=== PATIENT | female | born 1970 | race African-American/Black ===

== ENCOUNTER 2017-02-06 05:16 | Inpatient (IN) | payer OTHER ==
[2017-02-03 09:05] VITALS: BMI 30.7
[2017-02-06] MEDS ORDERED: MIDAZOLAM HCL 2 MG/2 ML SINGLE DOSE VIAL ONE (07:41)
[2017-02-06] MEDS ORDERED: ROCURONIUM BROMIDE 50 MG/5 ML VIAL ONE ×2 (07:41→10:04)
[2017-02-06] MEDS ORDERED: PROPOFOL 20 ML ONE (07:41)
[2017-02-06] MEDS ORDERED: CEFAZOLIN 2 GM in DEXTROSE 5%-WATER - 100 ML IVPB ONE (08:38)
--- NOTE | 2017-02-06 08:39 | HP ---
History & Physical Update - History History: No Change - Physical Physical: No Change - Assessment Assessment: No Change - Plan Plan: No Change
[2017-02-06] MEDS ORDERED: ceFAZolin SODIUM 1 GM VIAL IVPB ONE (09:05)
[2017-02-06] MEDS ORDERED: ceFAZolin SODIUM 1 GM VIAL ONE (09:05)
[2017-02-06] MEDS ORDERED: ePHEDrine SULFATE 50 MG/1 ML AMPULE ONE (09:15)
[2017-02-06] MEDS ORDERED: DEXAMETHASONE SOD PHOSPHATE 4 MG/1 ML VIAL ONE ×2 (09:24→10:58)
[2017-02-06] MEDS ORDERED: BUPIVACAINE HCL/PF 0.5% (5MG/ML) 10 ML VIAL IJ ONE ×3 (09:28→10:55)
[2017-02-06] MEDS ORDERED: HYDROmorphone HCL/PF 1 MG/ML VIAL (FOR PYXIS CHARGING ONLY) ONE ×2 (09:59→10:25)
[2017-02-06] MEDS ORDERED: IBUPROFEN 800 MG/8 ML IJ IVPB PRN (10:05)
[2017-02-06] MEDS ORDERED: NEOSTIGMINE METHYLSULFATE 0.5 MG/ML - 10 ML MDV ONE (11:19)
[2017-02-06] MEDS ORDERED: GLYCOPYRROLATE 0.2 MG/1 ML VIAL ONE (11:19)
[2017-02-06] MEDS ORDERED: LACTATED RINGERS SOLUTION 1,000 ML IV SCH (11:45)
[2017-02-06] MEDS ORDERED: HYDROmorphone *PCA* 10MG/50ML DISP.SYRIN PCA SCH ×2 (11:45→13:36)
--- NOTE | 2017-02-06 12:27 | OP ---
Operative Note - Note: Operative Date: 02/06/17 Pre-Operative Diagnosis: Leiomyomeatous uterus Operation: Laparoscopic Robotic hysterectomy. converted exploratory laparotomy. total abdominal hysterectomy. bilateral salpingectomy Findings: leiomyomatous uterus Post-Operative Diagnosis: Same as Pre-op Surgeon: Dania Aguila Field Technical Support Consultant: Romelia Guevara Anesthesia: General Estimated Blood Loss (mls): 300 Operative Report Dictated: Yes
[2017-02-06] MEDS: CEFAZOLIN 2 GM/D5W 50 ML IVPB SCH (18:01)
[2017-02-06 20:50] LABS: BASOPHIL 0.2 % (0-2.0); MCH 26.4 pg (25.7-33.7); MCHC 32.5 g/dl (32.0-36.0); MEAN CELL VOLUME 81.2 fl (80-96); MEAN PLT VOLUME 9.7 fl (7.5-11.1); PLATELET COUNT 255 K/MM3 (134-434); RDW 17.2 % (11.6-15.6); WHITE BLOOD COUNT 14.2 K/mm3 (4.0-10.0)
[2017-02-06 21:12] LABS: CALCIUM 8.8 mg/dL (8.5-10.1); CREATININE 0.7 mg/dL (0.55-1.02)
[2017-02-06] MEDS: METOPROLOL SUCCINATE 100 MG TAB.SR.24H (FP) PO SCH (22:28)
[2017-02-06] MEDS: LOSARTAN POTASSIUM 50 MG TABLET (FP) PO SCH (22:28)
[2017-02-06] MEDS: ATORVASTATIN CA 40 MG TABLET (FP) PO SCH (22:28)
[2017-02-06] MEDS: HYDROCHLOROTHIAZIDE 50 MG TABLET PO SCH (22:37)
[2017-02-07] MEDS: CEFAZOLIN 2 GM/D5W 50 ML IVPB SCH (00:49)
[2017-02-07 08:05] LABS: BASOPHIL 0.4 % (0-2.0); MCH 26.6 pg (25.7-33.7); MCHC 32.6 g/dl (32.0-36.0); MEAN CELL VOLUME 81.6 fl (80-96); MEAN PLT VOLUME 9.4 fl (7.5-11.1); NEUTROPHILS 83.2 % (42.8-82.8); PLATELET COUNT 228 K/MM3 (134-434); RDW 16.9 % (11.6-15.6); WHITE BLOOD COUNT 15.3 K/mm3 (4.0-10.0)
--- NOTE | 2017-02-07 08:18 | PN ---
Progress Note, Physician History of Present Illness: Pt seen/evaluated, overall doing well. Having some incisional pain. Denies CP/ SOB/F/C/PALACIO. [place] catheter in draining blue tinged urine. Tolerating clear diet, no n/v. No VB. No other complaints. - Current Medication List Current Medications: Active Medications Atorvastatin Calcium (Lipitor -) 40 mg PO [facility] Last Admin: 02/06/17 22:28 Dose: 40 mg Enoxaparin Sodium (Lovenox -) 40 mg SQ DAILY [facility] Hydrochlorothiazide (Hctz -) 50 mg PO [facility] Last Admin: 02/06/17 22:37 Dose: 50 mg Hydromorphone HCl (Dilaudid Membership Correspondent -) 10 mg WOOD TILE INSTALLATION HELPER WOOD TILE INSTALLATION HELPER [facility] PRN Reason: Protocol Stop: 02/13/17 11:39 Lactated Ringer's (Lactated Ringers Solution) 1,000 mls @ 75 mls/hr IV ASDIR [facility] Ibuprofen (Caldolor Injection -) 800 mg IVPB Q8H PRN PRN Reason: FEVER Losartan Potassium (Cozaar -) 50 mg PO [facility] Last Admin: 02/06/17 22:28 Dose: 50 mg Metoprolol Succinate (Toprol Xl -) 100 mg PO [facility] Last Admin: 02/06/17 22:28 Dose: 100 mg - Objective Vital Signs: Vital Signs Temperature 98.5 F 02/07/17 05:04 Pulse Rate 87 02/07/17 05:04 Respiratory Rate 20 02/07/17 05:04 Blood Pressure 134/70 02/07/17 05:04 O2 Sat by Pulse Oximetry (%) 100 02/06/17 13:55 Constitutional: Yes: Well Nourished, No Distress, Calm Eyes: Yes: Conjunctiva Clear, EOM Intact HENT: Yes: Atraumatic, Normocephalic Neck: Yes: Supple, Trachea Midline Cardiovascular: Yes: Regular Rate and Rhythm Respiratory: Yes: Regular, CTA Bilaterally Gastrointestinal: Yes: Normal Bowel Sounds, Soft Genitourinary: Yes: [place] Present Wound/Incision: Yes: Clean/Dry, Dressing Dry and Intact Neurological: Yes: Alert, Oriented Psychiatric: Yes: Alert, Oriented Labs: CBC, BMP 02/07/17 07:25 02/06/17 20:00 Problem List - Problems (1) S/P total abdominal hysterectomy Code(s): Z90.710 - ACQUIRED ABSENCE OF BOTH CERVIX AND UTERUS Assessment/Plan 46 y/o POD#1 s/p robotic diagnostic laparoscopy converted to total abdominal hysterectomy and bilateral salpingectomy for fibroids - AFVSS - hgb 10.4 post op, pt stable - clear diet, advance to regular - discontinue spain cathter later today - encourage abmulation - routine care
--- NOTE | 2017-02-07 09:09 | PN ---
Progress Note, Physician Chief Complaint: Pt. comfortable, pain controlled without ROLFER. No GA complaints. - Current Medication List Current Medications: Active Medications Atorvastatin Calcium (Lipitor -) 40 mg PO [facility] Last Admin: 02/06/17 22:28 Dose: 40 mg Enoxaparin Sodium (Lovenox -) 40 mg SQ DAILY [facility] Hydrochlorothiazide (Hctz -) 50 mg PO [facility] Last Admin: 02/06/17 22:37 Dose: 50 mg Hydromorphone HCl (Dilaudid Bridge Painter -) 10 mg ROLFER ROLFER [facility] PRN Reason: Protocol Stop: 02/13/17 11:39 Lactated Ringer's (Lactated Ringers Solution) 1,000 mls @ 75 mls/hr IV ASDIR [facility] Ibuprofen (Caldolor Injection -) 800 mg IVPB Q8H PRN PRN Reason: FEVER Losartan Potassium (Cozaar -) 50 mg PO [facility] Last Admin: 02/06/17 22:28 Dose: 50 mg Metoprolol Succinate (Toprol Xl -) 100 mg PO [facility] Last Admin: 02/06/17 22:28 Dose: 100 mg - Objective Vital Signs: Vital Signs Temperature 98.7 F 02/07/17 08:56 Pulse Rate 73 02/07/17 08:56 Respiratory Rate 20 02/07/17 08:56 Blood Pressure 139/91 02/07/17 08:56 O2 Sat by Pulse Oximetry (%) 100 02/06/17 13:55 Constitutional: Yes: Well Nourished, No Distress, Calm Musculoskeletal: Yes: WNL Neurological: Yes: WNL, Alert, Oriented ...Motor Strength: WNL Labs: CBC, BMP 02/07/17 07:25 02/06/17 20:00 Assessment/Plan POD#1 s/p Robotic to open hysterectomy under GA. Doing well, not using ROLFER. D/C ROLFER.
[2017-02-07] MEDS: ENOXAPARIN NA (PORCINE) 40 MG/0.4 ML DISP.SYRIN SQ SCH (09:43)
[2017-02-07] MEDS ORDERED: HYDROmorphone HCL CARPU-JECT 2 MG/1 ML DISP.SYRIN IVPB PRN (10:05)
[2017-02-07] MEDS ORDERED: oxyCODONE HCL 5 MG TABLET PO PRN (10:06)
--- NOTE | 2017-02-07 12:26 | PATH ---
Surgical Pathology Report Patient Name: MILAGRO ESPINOZA [facility]. Rec. #: [id number] /Age/Gender: 1970 (Age: 46) / F Account: [id number] Location: [facility] OBS/PLANT BUYER Taken: 02/06/2017 Received: 02/06/2017 Reported: 02/07/2017 Physicians: Dania Aguila M.D. Specimen(s) Received A: UTERUS AND CERVIX B: LEFT FALLOPIAN TUBE C: RIGHT FALLOPIAN TUBE D: RIGHT PARATUBAL CYST Clinical History Endometrial polyps, leiomyomatous uterus Final Diagnosis A. UTERUS AND CERVIX, TOTAL ABDOMINAL HYSTERECTOMY: CERVIX: CHRONIC CERVICITIS AND SQUAMOUS METAPLASIA. ENDOMETRIUM: DISORDERED PROLIFERATIVE. MYOMETRIUM: ADENOMYOSIS, LEIOMYOMATA WITH FOCAL DEGENERATIVE CHANGES (LARGEST 6.0 CM); FOCAL DEPOSITS OF AMORPHOUS MATERIAL SUGGESTIVE OF PRIOR UTERINE ARTERY EMBOLIZATION. UTERINE SEROSA: WITHOUT SIGNIFICANT PATHOLOGIC CHANGES. B. FALLOPIAN TUBE, LEFT SALPINGECTOMY: BENIGN FALLOPIAN TUBE WITH FOCAL FIBRINOHEMORRHAGIC ADHESIONS. C. FALLOPIAN TUBE, RIGHT, SALPINGECTOMY: BENIGN FALLOPIAN TUBE WITH FOCAL FIBRINOHEMORRHAGIC ADHESIONS. D. RIGHT PARATUBAL CYST, CYSTECTOMY: BENIGN SEROUS CYST. Electronically Signed Fantasma Qiu M.D. Gross Description A. Received in formalin labeled "uterus and cervix" is a 405 g hysterectomy specimen including a uterus with an attached cervix and no attached adnexa. The specimen measures 12 cm from superior to inferior, 11 cm from left to right and 6.5 cm from anterior to posterior. The serosa is pink-wahl with abundant bulging subserosal nodules. The attached cervix measures 4.5 cm in length and 4.0 cm in diameter. The ectocervix is pink-wahl, smooth and glistening. The endocervix displays a 0.7 x 0.3 x 0.2 cm pink-wahl polyp on the posterior aspect. The endometrial cavity measures 5 cm in length and 2.4 cm from cornu to cornu. The endometrium is hyperemic and averages 0.2 cm in thickness. The myometrium displays abundant intramural nodules measuring up to 6 cm in greatest dimension. The cut surface of the subserosal and intramural nodules is wahl, firm to rubbery displays whorled architecture. No areas of hemorrhage or necrosis are identified. Esthetician/Skin Therapist sections are submitted in 12 cassettes as follows: 1-anterior cervix; 2-posterior cervix with polyp; 3-6-vkasyngj endomyometrium; 8-9-yyatavcmx endomyometrium; 0-4-rcuosrtdro nodule; 4-36-sbzziwevqz nodules. B. Received in formalin labeled "left fallopian tube" is a 1.3 cm in length fimbriated portion of fallopian tube. The outer surface is owens-purple. Sectioning reveals a pinpoint lumen. Esthetician/Skin Therapist sections are submitted in 2 cassettes as follows: 1-fimbria; 2-cross sections of fallopian tube. C. Received in formalin labeled "right fallopian tube" is a 1.8 cm in length fimbriated portion of fallopian tube. The outer surface is owens-purple. Sectioning reveals an pinpoint lumen. Esthetician/Skin Therapist sections are submitted in 2 cassettes as follows: 1-fimbria; 2-cross sections of fallopian tube. D. Received in formalin labeled "right paratubal cyst" a 1.8 x 1.5 x 1.3 cm wahl, intact cyst containing clear serous fluid. Esthetician/Skin Therapist sections are submitted in one cassette. 02/06/[address] [facility]02/06/2017
[2017-02-07] MEDS ORDERED: SIMETHICONE 80 MG TAB.CHEW (FP) PO PRN (12:31)
[2017-02-07] MEDS ORDERED: ONDANSETRON 4 MG/2 ML VIAL ONE (12:46)
[2017-02-07] MEDS: ONDANSETRON 4 MG/2 ML VIAL IVPUSH PRN ×2 (12:49→15:43)
[2017-02-07] MEDS ORDERED: ONDANSETRON 4 MG/2 ML VIAL IVPB PRN (15:32)
[2017-02-07] MEDS ORDERED: PCA PUMP KEY 1 EACH EACH ONE (18:04)
[2017-02-07] MEDS: LOSARTAN POTASSIUM 50 MG TABLET (FP) PO SCH (22:36)
[2017-02-07] MEDS: HYDROCHLOROTHIAZIDE 50 MG TABLET PO SCH (22:36)
[2017-02-07] MEDS: METOPROLOL SUCCINATE 100 MG TAB.SR.24H (FP) PO SCH (22:37)
[2017-02-07] MEDS: ATORVASTATIN CA 40 MG TABLET (FP) PO SCH (22:37)
[2017-02-08] MEDS ORDERED: ACETAMINOPHEN 325 MG TABLET (FP) PO PRN (09:45)
--- NOTE | 2017-02-08 09:45 | PN ---
[id number] Pt was not able to void - Current Medications Current Medications: Active Medications Atorvastatin Calcium (Lipitor -) 40 mg PO [facility] Last Admin: 02/07/17 22:37 Dose: Not Given Enoxaparin Sodium (Lovenox -) 40 mg SQ DAILY [facility] Last Admin: 02/07/17 09:43 Dose: 40 mg Hydrochlorothiazide (Hctz -) 50 mg PO [facility] Last Admin: 02/07/17 22:36 Dose: Not Given Lactated Ringer's (Lactated Ringers Solution) 1,000 mls @ 75 mls/hr IV ASDIR [facility] Ibuprofen (Caldolor Injection -) 800 mg IVPB Q8H PRN PRN Reason: FEVER Last Admin: 02/07/17 10:10 Dose: 800 mg Losartan Potassium (Cozaar -) 50 mg PO [facility] Last Admin: 02/07/17 22:36 Dose: Not Given Metoprolol Succinate (Toprol Xl -) 100 mg PO [facility] Last Admin: 02/07/17 22:37 Dose: Not Given Ondansetron HCl (Zofran Injection) 4 mg IVPB Q4H PRN PRN Reason: NAUSEA AND/OR VOMITING Simethicone (Mylicon -) 80 mg PO QID PRN PRN Reason: GAS Last Admin: 02/07/17 11:50 Dose: 80 mg - Objective Vital Signs: Vital Signs Temperature 98.5 F 02/08/17 08:13 Pulse Rate 77 02/08/17 08:13 Respiratory Rate 18 02/08/17 08:13 Blood Pressure 120/69 02/08/17 08:13 O2 Sat by Pulse Oximetry (%) 100 02/06/17 13:55 Constitutional: Yes: Well Nourished, No Distress Gastrointestinal: Yes: WNL, Soft, Abdomen, Obese Musculoskeletal: Yes: WNL Extremities: Yes: WNL Edema: No Integumentary: Yes: WNL Wound/Incision: Yes: Well Approximated, Steri Strips, Open to air Neurological: Yes: WNL, Alert, Oriented Labs Lab Results: CBC, BMP 02/07/17 07:25 02/06/17 20:00 Problem List - Problems (1) S/P total abdominal hysterectomy Code(s): Z90.710 - ACQUIRED ABSENCE OF BOTH CERVIX AND UTERUS Assessment/Plan POD1 stable Pt was unable to void yesterday spain was replaced will maintain spain [place] until check ua dc home with foly if UA has rbc
[2017-02-08] MEDS ORDERED: IBUPROFEN 600 MG TABLET (FP) PO PRN (09:46)
[2017-02-08 09:54] LABS: URINE APPEARANCE CLEAR; URINE BILIRUBIN NEGATIVE (NEGATIVE); URINE COLOR YELLOW; URINE GLUCOSE (UA) NEGATIVE (NEGATIVE); URINE KETONE NEGATIVE (NEGATIVE); URINE LEUK ESTERASE NEGATIVE (NEGATIVE); URINE NITRITE NEGATIVE (NEGATIVE); URINE PROTEIN NEGATIVE (NEGATIVE); URINE UROBILINOGEN NEGATIVE E.U./dl (0.2-1.0)
[2017-02-08 10:02] LABS: URINE BLOOD 3+ (NEGATIVE)
[2017-02-08 10:11] LABS: URINE MUCUS RARE; URINE RBC 11 /hpf (0-3); URINE WBC 3 /hpf (3-5)
[2017-02-08] MEDS: ENOXAPARIN NA (PORCINE) 40 MG/0.4 ML DISP.SYRIN SQ SCH (11:26)
--- NOTE | 2017-02-08 11:49 | CONSULT ---
Consultation: REQUESTING PROVIDER: Baltazar Najera CONSULT REQUEST: We have been asked to medically evaluate this patient for (Eval ). HISTORY OF PRESENT ILLNESS: 46 year old female with pmh of Hypertension and hyperlipidemia, day 2 s/p Total bilateral hysterectomy and salpingectomy for medical evaluation. Pt said she feels well and her only complaint is abdominal bloating and gas. Pt has no fever or chills, no nausea and vomiting. Pt is tolerating diet well. Patient is burping and passing gas rectally but has not have any bowel movement since the surgery but she usually have daily bowel movement. Patient had her spain catheter removed yesterday but was unable to urinate and the spain cath had to be reinserted. Pt has clear yellow urine and denies gross hematuria, no vaginal bleeding no foul smelling or abnormal vaginal discharge. PMH: HTN, HPLD PSH: Laparoscopic Robotic hysterectomy converted to open laparotomy, total abdominal hysterectomy b/l salpingectomy. 2 c-sections SH: no smoking, occasional alcohol, no recreational drug FH: Mother with HTN, Hyperlipidemia, father of liver cancer at 44 NKA REVIEW OF SYSTEMS: CONSTITUTIONAL: Absent: fever, chills, diaphoresis, generalized weakness, malaise, loss of appetite, weight change HEENT: Absent: rhinorrhea, nasal congestion, throat pain, throat swelling, difficulty swallowing, mouth swelling, ear pain, eye pain, visual changes CARDIOVASCULAR: Absent: chest pain, syncope, palpitations, irregular heart rate, lightheadedness , peripheral edema RESPIRATORY: Absent: cough, shortness of breath, dyspnea with exertion, orthopnea, wheezing, stridor, hemoptysis GASTROINTESTINAL:abdominal distension, constipation, bloating/gas Absent: abdominal pain, nausea, vomiting, diarrhea, melena, hematochezia GENITOURINARY: Absent: dysuria, frequency, urgency, hesitancy, hematuria, flank pain, genital pain MUSCULOSKELETAL: Absent: myalgia, arthralgia, joint swelling, back pain, neck pain SKIN: abdominal suprapubic horizontal surgical scar Absent: rash, itching, pallor HEMATOLOGIC/IMMUNOLOGIC: Absent: easy bleeding, easy bruising, lymphadenopathy, frequent infections ENDOCRINE: Absent: unexplained weight gain, unexplained weight loss, heat intolerance, cold intolerance NEUROLOGIC: Absent: headache, focal weakness or paresthesias, dizziness, unsteady gait, seizure, mental status changes, bladder or bowel incontinence PSYCHIATRIC: Absent: anxiety, depression, suicidal or homicidal ideation, hallucinations. PHYSICAL EXAMINATION Vital Signs - 24 hr 02/07/17 02/07/17 02/07/17 14:00 18:00 21:15 Temperature 98.3 F 97.8 F 97.9 F Pulse Rate 61 63 82 Respiratory 20 20 20 Rate Blood Pressure 131/88 124/71 141/74 02/08/17 02/08/17 02/08/17 01:35 06:00 08:13 Temperature 99.0 F 99.3 F 98.5 F Pulse Rate 81 73 77 Respiratory 20 20 18 Rate Blood Pressure 114/64 126/55 120/69 GENERAL: Awake, alert, and fully oriented, in no acute distress. HEAD: Normal with no signs of trauma. EYES: Pupils equal, round and reactive to light, extraocular movements intact, sclera anicteric, conjunctiva clear. No lid lag. EARS, NOSE, THROAT: Ears normal, nares patent, oropharynx clear without exudates. Moist mucous membranes. NECK: Normal range of motion, supple without lymphadenopathy, JVD, or masses. LUNGS: Breath sounds equal, clear to auscultation bilaterally. No wheezes, and no crackles. No accessory muscle use. HEART: Regular rate and rhythm, normal S1 and S2 without murmur, rub or gallop. ABDOMEN: Soft, tender low abdomen around surgical site, not distended, normoactive bowel sounds, no guarding, no rebound, no masses. No hepatomegaly or splenomegaly. horizontal suprapubic surgical scar, well approximated with steristrip, mild to moderate serous fluid, no foul smelling MUSCULOSKELETAL: Normal range of motion at all joints. No bony deformities or tenderness. No CVA tenderness. UPPER EXTREMITIES: 2+ pulses, warm, well-perfused. No cyanosis. No clubbing. Cap refill <2 seconds. No peripheral edema. LOWER EXTREMITIES: 2+ pulses, warm, well-perfused. No calf tenderness. No peripheral edema. NEUROLOGICAL: Cranial nerves II-XII intact. Normal speech. Normal gait. PSYCHIATRIC: Cooperative. Good eye contact. Appropriate mood and affect. SKIN: Warm, dry, normal turgor, no rashes or lesions noted. Surgical scar suprapubic region Laboratory Results - last 24 hr 02/08/17 09:00 Urine Color Yellow Urine Appearance Clear Urine pH 7.0 Ur Specific [place] 1.018 Urine Protein Negative Urine Glucose (UA) Negative Urine Ketones Negative Urine Blood 3+ H Urine Nitrite Negative Urine Bilirubin Negative Urine Urobilinogen Negative Ur Leukocyte Esterase Negative Urine RBC 11 Urine WBC 3 Ur Epithelial Cells Rare Urine Mucus Rare Active Medications Generic Name Dose Route Start Last Admin Trade Name Freq PRN Reason Stop Dose Admin Acetaminophen 650 mg 02/08/17 09:45 Tylenol - PO Q4H PRN FEVER OR PAIN Atorvastatin Calcium 40 mg 02/06/17 22:00 02/07/17 22:37 Lipitor - PO Not Given [facility] Enoxaparin Sodium 40 mg 02/07/17 10:00 02/08/17 11:26 Lovenox - SQ 40 mg DAILY [facility] Administration Hydrochlorothiazide 50 mg 02/06/17 22:00 02/07/17 22:36 Hctz - PO Not Given [facility] Lactated Ringer's 1,000 mls @ 75 mls/hr 02/06/17 11:45 Lactated Ringers Solution IV ASDIR [facility] Ibuprofen 800 mg 02/06/17 10:05 02/07/17 10:10 Caldolor Injection - IVPB 800 mg Q8H PRN Administration FEVER Ibuprofen 600 mg 02/08/17 09:46 Motrin - PO Q4H PRN PAIN Losartan Potassium 50 mg 02/06/17 22:00 02/07/17 22:36 Cozaar - PO Not Given [facility] Metoprolol Succinate 100 mg 02/06/17 22:00 02/07/17 22:37 Toprol Xl - PO Not Given [facility] Ondansetron HCl 4 mg 02/07/17 15:32 Zofran Injection IVPB Q4H PRN NAUSEA AND/OR VOMITING Simethicone 80 mg 02/07/17 12:31 02/07/17 11:50 Mylicon - PO 80 mg QID PRN Administration GAS CBC, BMP 02/07/17 07:25 02/06/17 20:00 Laboratory Tests 02/08/17 09:00 Urine Nitrite Negative Ur Leukocyte Esterase Negative Urine WBC 3 ASSESSMENT/PLAN: 46 year old female with pmh of Hypertension and hyperlipidemia, day 2 s/p Total bilateral hysterectomy and salpingectomy for medical evaluation. Leukocytosis likely reactive r/o surgical wound infection Pt has no fever, chills, no cough, no sob, no rinohrrhea, no abdominal pain, diarrhea, no n/v, no dysuria Abdomen wound is well approximated open to air with serous/yellow fluid, no smell, likely normal variant Consider antibiotic treatment and septic work up fever, increasing white count, wound infection. CBC Hypokalemia repeat BMP will treat if low Constipation Could be rt to opiod use, pain or surgery Colace Po 100 TID daily MIralax PRn Abdominal Bloating Symethicone HTN BP Controlled Continue home meds Coozar HCTZ Toprol XL Hyperlipidemia Continue Lipitor DVT prophylaxis: early ambulation, lovenox SQ 40mg Disposition: Keep in hospital pending wound infection rule out, leukocytosis resolves. Dispo: We will continue to follow the patient. Thank you for this consultative opportunity. Visit type - Emergency Visit Emergency Visit: Yes ED Registration Date: 02/06/17 Care time: The patient presented to the Emergency Department on the above date and was hospitalized for further evaluation of their emergent condition. - New Patient This patient is new to me today: Yes Date on this admission: 02/08/17 - Critical Care Critical Care patient: No
[2017-02-08] MEDS ORDERED: POLYETHYLENE GLYCOL 3350 119 GM BTL PO PRN (14:29)
[2017-02-08 16:00] LABS: MCH 26.6 pg (25.7-33.7); MCHC 32.6 g/dl (32.0-36.0); MEAN CELL VOLUME 81.6 fl (80-96); MEAN PLT VOLUME 9.7 fl (7.5-11.1); PLATELET COUNT 232 K/MM3 (134-434); RDW 16.9 % (11.6-15.6)
[2017-02-08] MEDS: DOCUSATE SODIUM 100 MG CAPSULE (FP) PO SCH ×2 (16:12→21:39)
[2017-02-08 16:22] LABS: CALCIUM 8.6 mg/dL (8.5-10.1); CREATININE 0.6 mg/dL (0.55-1.02)
[2017-02-08] MEDS ORDERED: POTASSIUM CHLORIDE ORAL LIQUID 20 MEQ/15 ML PO ONE (17:05)
--- NOTE | 2017-02-08 17:27 | PN ---
Teaching Attending Note Name of Resident: Fernandez Sellers ATTENDING PHYSICIAN STATEMENT I saw and evaluated the patient. I reviewed the resident's note and discussed the case with the resident. I agree with the resident's findings and plan as documented. SUBJECTIVE:c/o non productive cough that began today. also some abdominal distention with several episodes of flatus. denies CP, fever, chills, N/V/C. no BM since admission OBJECTIVE: Last Vital Signs Temp Pulse Resp BP Pulse Ox 97.8 F 66 18 124/64 100 02/08/17 13:47 02/08/17 13:47 02/08/17 13:47 02/08/17 13:47 02/06/17 13:55 General NAD CV S1 S2 RRR no murmur/rub/gallop Lungs CTA B/L no wheezing/rales/rhonchi Abdomen soft mildly distended extremities no pedal edema or calf tenderness ASSESSMENT AND PLAN: 46yo F wtih PMH HTN and dyslipidemia with OKSANA BSO for leimoyoma uterus POD #2 1. Cough- non productive. possible some atelectasis from recent surgery and immobilization. mild leukocytosis which is trending down. low concern for PNA at this time. afebrile. will wait on starting abx at this time. encouraged OOB as tolerated. incentive spirometer 2. Constipation- likely medication induced. start colace/senna. monitor for BM 3. Gas- likely due to initial laprascopic surgery. re-assured pt this is common after surgery. on simethicone 4. Normocytic anemia- denies vaginal bleeding or hematuria. some hematuria noted on UA. likely due to surgery. will check iron studies. no indication for blood transfusion at this time 5. hypokalemia- Kcl 40meq. check Mg level 6. HTN- controlled. cont home management 7. s/p OKSANA-BSO- POD #2. pain is tolerated with pain medication. will d/c IVF as eating well. management per TECHNOLOGY INTEGRATION SPECIALIST 8. DVT ppx- lovenox
[2017-02-08] MEDS: METOPROLOL SUCCINATE 100 MG TAB.SR.24H (FP) PO SCH (21:39)
[2017-02-08] MEDS: ATORVASTATIN CA 40 MG TABLET (FP) PO SCH (21:39)
[2017-02-08] MEDS: LOSARTAN POTASSIUM 50 MG TABLET (FP) PO SCH (21:39)
[2017-02-08] MEDS: HYDROCHLOROTHIAZIDE 50 MG TABLET PO SCH (21:39)
[2017-02-09] MEDS: DOCUSATE SODIUM 100 MG CAPSULE (FP) PO SCH (06:28)
[2017-02-09 08:26] LABS: BASOPHIL 0.7 % (0-2.0); EOSINOPHIL 0.8 % (0-4.5); MCH 27.2 pg (25.7-33.7); MCHC 33.4 g/dl (32.0-36.0); MEAN CELL VOLUME 81.5 fl (80-96); MEAN PLT VOLUME 9.5 fl (7.5-11.1); NEUTROPHILS 71.5 % (42.8-82.8); PLATELET COUNT 238 K/MM3 (134-434); RDW 16.7 % (11.6-15.6); WHITE BLOOD COUNT 10.8 K/mm3 (4.0-10.0)
[2017-02-09 08:35] VITALS: BP 136/81; PULSE 65; TEMP 98
[2017-02-09 08:53] LABS: CALCIUM 8.6 mg/dL (8.5-10.1); CREATININE 0.6 mg/dL (0.55-1.02); FERRITIN 46.955 ng/ml (6.9-282.5)
[2017-02-09] MEDS: ENOXAPARIN NA (PORCINE) 40 MG/0.4 ML DISP.SYRIN SQ SCH (10:01)
--- NOTE | 2017-02-09 10:39 | PN ---
Progress Note (SOAP) - Subjective Chief Complaint: Pt doing well PMH HTN and dyslipidemia spain with clear urine will dc spain next week as a precaution - Current Medications Current Medications: Active Medications Acetaminophen (Tylenol -) 650 mg PO Q4H PRN PRN Reason: FEVER OR PAIN Last Admin: 02/09/17 02:15 Dose: 650 mg Atorvastatin Calcium (Lipitor -) 40 mg PO [facility] Last Admin: 02/08/17 21:39 Dose: 40 mg Docusate Sodium (Colace -) 100 mg PO TID [facility] Last Admin: 02/09/17 06:28 Dose: 100 mg Enoxaparin Sodium (Lovenox -) 40 mg SQ DAILY [facility] Last Admin: 02/09/17 10:01 Dose: Not Given Hydrochlorothiazide (Hctz -) 50 mg PO [facility] Last Admin: 02/08/17 21:39 Dose: 50 mg Ibuprofen (Caldolor Injection -) 800 mg IVPB Q8H PRN PRN Reason: FEVER Last Admin: 02/07/17 10:10 Dose: 800 mg Ibuprofen (Motrin -) 600 mg PO Q4H PRN PRN Reason: PAIN Losartan Potassium (Cozaar -) 50 mg PO [facility] Last Admin: 02/08/17 21:39 Dose: 50 mg Metoprolol Succinate (Toprol Xl -) 100 mg PO [facility] Last Admin: 02/08/17 21:39 Dose: 100 mg Ondansetron HCl (Zofran Injection) 4 mg IVPB Q4H PRN PRN Reason: NAUSEA AND/OR VOMITING Polyethylene Glycol (Miralax (For Daily Use) -) 17 gm PO ONCE PRN PRN Reason: CONSTIPATION Simethicone (Mylicon -) 80 mg PO QID PRN PRN Reason: GAS Last Admin: 02/07/17 11:50 Dose: 80 mg - Objective Vital Signs: Vital Signs Temperature 98.0 F 02/09/17 08:33 Pulse Rate 65 02/09/17 08:33 Respiratory Rate 20 02/09/17 08:33 Blood Pressure 136/81 02/09/17 08:33 O2 Sat by Pulse Oximetry (%) 100 02/06/17 13:55 Constitutional: Yes: Well Nourished, No Distress Cardiovascular: Yes: WNL Respiratory: Yes: WNL, Regular, CTA Bilaterally Gastrointestinal: Yes: WNL, Soft, Abdomen, Obese Breast(s): Yes: WNL Musculoskeletal: Yes: WNL Extremities: Yes: WNL Edema: No Wound/Incision: Yes: Clean/Dry, Well Approximated, Steri Strips, Open to air Labs Lab Results: CBC, BMP 02/09/17 07:30 02/09/17 07:30 Problem List - Problems (1) S/P total abdominal hysterectomy Code(s): Z90.710 - ACQUIRED ABSENCE OF BOTH CERVIX AND UTERUS Assessment/Plan POD3 SP OKSANA HTN Dyslipidemia stable will maintain spain DC hme rto ` for spain to be dced on monday iron daily fu with medicine
--- NOTE | 2017-02-09 10:46 | DS ---
Physical Exam-STORE OPERATIONS MANAGER Vital Signs: Vital Signs Temperature 98.0 F 02/09/17 08:33 Pulse Rate 65 02/09/17 08:33 Respiratory Rate 20 02/09/17 08:33 Blood Pressure 136/81 02/09/17 08:33 O2 Sat by Pulse Oximetry (%) 100 02/06/17 13:55 Constitutional: Yes: Well Nourished, No Distress Neck: Yes: WNL, Supple, Trachea Midline Respiratory: Yes: WNL Gastrointestinal: Yes: WNL, Normal Bowel Sounds Renal/: Yes: Sidhu Present Edema: No Neurological: Yes: WNL, Alert, Oriented Labs: CBC, BMP 02/09/17 07:30 02/09/17 07:30 Discharge Summary Reason For Visit: ENDOMETRIAL POLYPS/LEIOMYOMATOUS UTERUS/PELVIC ATILIO Current Active Problems S/P total abdominal hysterectomy (Acute) Procedures: Principal: Total abdominal hysterectomy. bilateral salpingectomy Hospital Course: anemai hematuria Condition: Good - Instructions Diet, Activity, Other Instructions: Dr. Dania Aguila Shore Working Supervisor discharge instructions Physical activity Resume your normal everyday activity as tolerated no heavy lifting or exercise until seen by your surgeon. You may walk unlimited jessica of and climb stairs. You may resume driving the car when you feel safe and comfortable behind the wheel. No sexual activity as instructed by Dr. Aguila. Wound care If you have a bandage, leave it on, and keep dry for 48-72 hours. After that time discard the outer bandage. If they are tapes on the skin under the out of bandage leave them in place. They will peel off in the next 7 to 10 days. Do Not Peel them off. You may shower the day after surgery. If there are tapes present on the skin, you may shower over them. Diet There are no dietary restrictions. Eat healthy, high-fiber foods. Drink 6 to 8 glasses of liquid each day. This will assist in keeping your bowels are regular. Pain management You may take Tylenol or acetaminophen or Ibuprofen (for example, Motrin, Advil etc.) from my pain prescription medication is ordered should be taken as prescribed for moderate to severe pain. Call Dr. Aguila for any of the following: Severe pain not relieved by medication Fever of 101 or higher Excessive bleeding or drainage on dressing Inability to urinate Call the office at [phone] for an appointment in seven days. Referrals: Alba Wiggins MD [Staff Physician] - Dania Aguila MD [Staff Physician] - Disposition: HOME - Home Medications Comprehensive Discharge Medication List: Ambulatory Orders Metoprolol Succinate [Toprol XL -] 100 mg PO HS 03/19/14 Multivitamin [Multivitamins] 1 each PO DAILY 03/19/14 Atorvastatin Ca [Lipitor -] 40 mg PO HS 07/09/14 Hydrochlorothiazide 50 mg PO HS 02/03/17 Losartan Potassium 50 mg PO HS 02/03/17 Oxycodone HCl/Acetaminophen [Percocet 5-325 mg Tablet -] 1 tab PO Q4H #20 tablet MDD 6 02/06/17 Ibuprofen [Motrin -] 600 mg PO QID PRN #28 tablet 02/08/17
[2017-02-09] MEDS ORDERED: POTASSIUM CHLORIDE ORAL LIQUID 20 MEQ/15 ML PO ONE (11:30)
--- NOTE | 2017-02-09 11:58 | PN ---
Teaching Attending Note Name of Resident: Fernandez Sellers ATTENDING PHYSICIAN STATEMENT I saw and evaluated the patient. I reviewed the resident's note and discussed the case with the resident. I agree with the resident's findings and plan as documented. SUBJECTIVE:states cough resolved. denies CP, SOB,fever, chills, N/v/C/D. ambulating without difficulty OBJECTIVE: Last Vital Signs Temp Pulse Resp BP Pulse Ox 98.0 F 65 20 136/81 100 02/09/17 08:33 02/09/17 08:33 02/09/17 08:33 02/09/17 08:33 02/06/17 13:55 General NAD CV S1 S2 RRR no murmur/rub/gallop Lungs CTA B/L no wheezing/rales/rhonchi Abdomen soft NT/ND extremities no pedal edema or calf tenderness ASSESSMENT AND PLAN: 46yo F wtih PMH HTN and dyslipidemia with OKSANA BSO for leimoyoma uterus POD #2 1. Cough-resolved. afebrile. leukocytosis trending down. no indication for abx at this time. cont incentive spirometer 2. Constipation- BM last night. cont stool softerners to BM daily 3. Gas- improved. likely due to initial laprascopic surgery. re-assured pt this is common after surgery. on simethicone 4. Normocytic anemia- Hgb stable. iron studies pending 5. hypokalemia- Kcl 40meq. should improve with increased diet 6. HTN- controlled. cont home management 7. s/p OKSANA-BSO- POD #3. pain is tolerated with pain medication.management per RECYCLING SPECIALIST 8. DVT ppx- lovenox
--- NOTE | 2017-02-09 13:42 | PN ---
Physical Exam: SUBJECTIVE: Patient seen and examined No s/s of acute distress Comfortable, pain controlled OBJECTIVE: Vital Signs Period Temp Pulse Resp BP Sys/Schaffer Pulse Ox Last 24 Hr 97.8 F-99.4 F 65-89 18-20 124-136/64-84 GENERAL: Awake, alert, and fully oriented, in no acute distress. HEAD: Normal with no signs of trauma. LUNGS: Breath sounds equal, clear to auscultation bilaterally. No wheezes, and no crackles. No accessory muscle use. HEART: Regular rate and rhythm, normal S1 and S2 without murmur, rub or gallop. ABDOMEN: Soft, tender low abdomen around surgical site, not distended, normoactive bowel sounds, no guarding, no rebound, no masses. No hepatomegaly or splenomegaly. horizontal suprapubic surgical scar, well approximated with steristrip, mild serous fluid, no foul smelling MUSCULOSKELETAL: Normal range of motion at all joints. No bony deformities or tenderness. No CVA tenderness. UPPER EXTREMITIES: 2+ pulses, warm, well-perfused. No cyanosis. No clubbing. Cap refill <2 seconds. No peripheral edema. LOWER EXTREMITIES: 2+ pulses, warm, well-perfused. No calf tenderness. No peripheral edema. PSYCHIATRIC: Cooperative. Good eye contact. Appropriate mood and affect. SKIN: Warm, dry, normal turgor, no rashes or lesions noted. Surgical scar suprapubic region Laboratory Results - last 24 hr 02/08/17 02/08/17 02/08/17 15:30 15:35 15:35 WBC 12.0 H RBC 3.78 Hgb 10.1 L Hct 30.9 L MCV 81.6 MCHC 32.6 RDW 16.9 H Plt Count 232 MPV 9.7 Neutrophils % Lymphocytes % Monocytes % Eosinophils % Basophils % Sodium 142 Potassium 3.4 L Chloride 99 Carbon Dioxide 33 H Anion Gap 10 BUN 7 D Creatinine 0.6 Random Glucose 91 D Calcium 8.6 Magnesium 2.1 Ferritin 02/09/17 02/09/17 07:30 07:30 WBC 10.8 H RBC 3.85 Hgb 10.5 L Hct 31.4 L MCV 81.5 MCHC 33.4 RDW 16.7 H Plt Count 238 MPV 9.5 Neutrophils % 71.5 Lymphocytes % 17.7 D Monocytes % 9.3 Eosinophils % 0.8 D Basophils % 0.7 Sodium 140 Potassium 3.5 Chloride 99 Carbon Dioxide 30 Anion Gap 11 BUN 7 Creatinine 0.6 Random Glucose 92 Calcium 8.6 Magnesium Ferritin 46.955 Active Medications Generic Name Dose Route Start Last Admin Trade Name Freq PRN Reason Stop Dose Admin Acetaminophen 650 mg 02/08/17 09:45 02/09/17 02:15 Tylenol - PO 650 mg Q4H PRN Administration FEVER OR PAIN Atorvastatin Calcium 40 mg 02/06/17 22:00 02/08/17 21:39 Lipitor - PO 40 mg HS CHELE Administration Docusate Sodium 100 mg 02/08/17 14:30 02/09/17 06:28 Colace - PO 100 mg TID CHELE Administration Enoxaparin Sodium 40 mg 02/07/17 10:00 02/09/17 10:01 Lovenox - SQ Not Given DAILY CHELE Hydrochlorothiazide 50 mg 02/06/17 22:00 02/08/17 21:39 Hctz - PO 50 mg HS CHELE Administration Ibuprofen 800 mg 02/06/17 10:05 02/07/17 10:10 Caldolor Injection - IVPB 800 mg Q8H PRN Administration FEVER Ibuprofen 600 mg 02/08/17 09:46 Motrin - PO Q4H PRN PAIN Losartan Potassium 50 mg 02/06/17 22:00 02/08/17 21:39 Cozaar - PO 50 mg HS CHELE Administration Metoprolol Succinate 100 mg 02/06/17 22:00 02/08/17 21:39 Toprol Xl - PO 100 mg HS CHELE Administration Ondansetron HCl 4 mg 02/07/17 15:32 Zofran Injection IVPB Q4H PRN NAUSEA AND/OR VOMITING Polyethylene Glycol 17 gm 02/08/17 14:29 Miralax (For Daily Use) - PO ONCE PRN CONSTIPATION Simethicone 80 mg 02/07/17 12:31 02/07/17 11:50 Mylicon - PO 80 mg QID PRN Administration GAS CBC, BMP 02/09/17 07:30 02/09/17 07:30 ASSESSMENT/PLAN: 46 year old female with pmh of Hypertension and hyperlipidemia, day 2 s/p Total bilateral hysterectomy and salpingectomy for medical evaluation. Leukocytosis likely reactive r/o surgical wound infection Pt has no fever, chills, no cough, no sob, no rinohrrhea, no abdominal pain, diarrhea, no n/v, no dysuria Abdomen wound is well approximated open to air with serous fluid, no smell WBC trending down, Now 10.8 Urinary Retention Likely due to surgery, pain Consider removing spain prior to DC, If still unable to void after 6 hours, reinsert. Follow up outpatient with OBGYN and/or urology Hypokalemia K 3.5 Kcl 40meq once Constipation Could be rt to opiod use, pain or surgery Colace Po 100 TID daily Miralax PRn Abdominal Bloating Symethicone HTN BP Controlled Continue home meds Coozar HCTZ Toprol XL Hyperlipidemia Continue Lipitor DVT prophylaxis: early ambulation, lovenox SQ 40mg Disposition: Pt is stable from the medicine point of view, we are signing off the case. Thank you for the opportunity to participate in the care of this patient. Please contact us if our expertise is needed in the future. Visit type - Emergency Visit Emergency Visit: Yes ED Registration Date: 02/06/17 Care time: The patient presented to the Emergency Department on the above date and was hospitalized for further evaluation of their emergent condition. - New Patient This patient is new to me today: Yes Date on this admission: 02/09/17 - Critical Care Critical Care patient: No - Discharge Referral Referred to [facility] No
[2017-02-10 06:06] LABS: SERUM IRON 34 ug/dL (27-159); TOTAL IRON BINDING CAPACITY 289 ug/dL (250-450); UIBC 255 ug/dL (131-425)
--- NOTE | 2017-02-10 13:52 | OP ---
DATE OF OPERATION: 02/06/2017 PREOPERATIVE DIAGNOSIS: Leiomyomatous uterus, urinary frequency and abdominal pain. POSTOPERATIVE DIAGNOSIS: Leiomyomatous uterus, urinary frequency and abdominal pain. OPERATION: Laparoscopic robotic hysterectomy, which was converted to an exploratory laparotomy, total abdominal hysterectomy and bilateral salpingectomy. SURGEON: Dania Aguila MD PUBLIC RELATIONS ASSISTANT: Romelia Guevara DO ANESTHESIA: General. ESTIMATED BLOOD LOSS: 300 mL. PROCEDURE: Patient was taken to the operating room and placed in dorsal lithotomy position, prepped and draped in the usual sterile fashion. A timeout was performed in accordance with hospital regulations. A Sidhu catheter was inserted into the bladder. A speculum was placed in the vagina. Anterior lip of the cervix was grasped with the single-toothed tenaculum and the uterine manipulator was then inserted into the endometrial cavity and the cuff around the cervical cuff. Attention was then drawn to the umbilicus, where an 8-mm umbilical incision was made. The Veress needle was inserted into the cavity. Approximately 3-4 L of CO2 was insufflated into the cavity. The Veress needle was then removed and an 8-mm trocar was then inserted with the laparoscope and camera. Visualization revealed a large leiomyomatous uterus with some omental adhesions. Two trocars were placed on the left side and one in the upper abdomen. After a 5-mm incision was made, an AirSeal cannula was inserted and at the same level of the umbilicus, an 8-mm incision was made on the left side. Under direct visualization, a trocar was inserted without injury to underlying viscera. Two cannulas and trocars were placed on the right side 8 cm apart from each other under direct visualization after the incisions had been made. The da Maliha robot was then side-docked to the patient's bedside. Trocars were inserted onto the robot and instruments were then placed, vessel sealer on the left, tenaculum and Endo Nicki on the right. The AirSeal cannula was then confirmed. Deep Trendelenburg had been done with the patient. Attention was then drawn to the console, where a severely large leiomyomatous uterus was noted. Some omental adhesions were cut using a vessel sealer and the procedure was started. A tenaculum was then used to move the uterus over to the right side, where the round ligament was identified, clamped and cut. A large fibroid was noted anteriorly which made dissection difficult. The right round ligament was identified, clamped and cut. Due to the large fibroid, and after the round ligament identified on the right had been clamped and cut, the decision was made to convert to an exploratory laparotomy and a total abdominal hysterectomy due to the size of the uterus and our inability to dissect the bladder down. A Pfannenstiel skin incision was then made at the table after the da Maliha robot was undocked and trocars removed. This incision was made through the patient's previous scar. Cautery was then used to go through abdominal wall towards the fascia. The fascia was cut in the midline and cautery was then used to open the fascia in the smiling fashion was then used to bluntly and sharply dissect the rectus muscle off the fascia. The muscle was split in the midline. The peritoneal cavity was then entered and carried upward and downward. The uterus was exteriorized. A large myoma was noted. Vesiculouterine section was then entered and the bladder was bluntly dissected out of the operative field. The uterine artery was identified, clamped and cut using LigaSure. The cardinal ligament was identified, clamped and cut after the bladder had been dissected out of the operative field. After all pedicles had been clamped and cut, cautery was then used to enter the vagina and cautery was then used to cut the vagina away from the cervix. The specimen was then submitted to Pathology. The uterine manipulator was removed. The cuff was then closed using continuous and locking 0 Vicryl sutures. Hemostasis was achieved. The tubes were bilaterally grasped, coagulated, cut and submitted to Pathology. Ovaries were noted to be normal. The abdominal cavity was cleaned with clean lap pads. The peritoneum was then closed using 0 Vicryl suture. The fascia was then closed using 0 Vicryl suture in two parts continuous. Subcutaneous was closed using interrupted sutures with 0 Vicryl suture. The skin was then closed with 3-0 Vicryl in subcuticular fashion. The wound was washed and dressed. The ureters had been identified prior to closing and were found to have peristalsis. The patient tolerated the procedure well. Jamil [id number] SE[facility] HOSPITALJesse
== END 2017-02-09 13:30 | disposition home or self-care (01) | DRG 743 ==
LOC: JASUSAT 05:16 → EDSTATUS 08:00 → JSAMEDAYSX 12:25 → J3W 14:17
PROVIDERS: ADMIT Obstetrics & Gynecology; ATTEND Obstetrics & Gynecology
PROC: 0UTC0ZZ Resection of Cervix, Open Approach (ICD-10-PCS; 2017-02-06)
PROC: 0UT70ZZ Resection of Bilateral Fallopian Tubes, Open Approach (ICD-10-PCS; 2017-02-06)
PROC: 8E0W0CZ Robotic Assisted Procedure of Trunk Region, Open Approach (ICD-10-PCS; 2017-02-06)
PROC: 0UT90ZZ Resection of Uterus, Open Approach (ICD-10-PCS; principal; 2017-02-06 08:30)
DX: D25.9 Leiomyoma of uterus, unspecified (principal); I10 Essential (primary) hypertension; E78.5 Hyperlipidemia, unspecified; Z53.31 Laparoscopic surgical procedure converted to open procedure; E87.6 Hypokalemia; D64.9 Anemia, unspecified; K59.03 Drug induced constipation; R33.9 Retention of urine, unspecified
CPT/HCPCS: 36415; 74000-TC; 80048; 81003; 81015; 82728; 83540; 83550; 83735; 84703; 85025; 85027; 88305-TC; 88307-TC; 94010; 94760

== ENCOUNTER 2018-07-27 01:27 | Emergency (ER) | payer OTHER ==
[2018-07-27 01:33] VITALS: BP 156/94; PULSE 72; TEMP 98.2; BMI 31.4
--- NOTE | 2018-07-27 02:11 | PDOC ---
History of Present Illness - General Chief Complaint: Bleeding from Anus Stated Complaint: NOTICED SOME BLOOD W/STOOL Time Seen by Provider: 07/27/18 01:33 - History of Present Illness Initial Comments: This 47-year-old woman with a history of HTN/HLD presents with a few day history of rectal bleeding with bowel movements. Patient states that she has not been constipated and does not remember bearing-down excessively when she first noted the bright red blood on tissues/in bowl 2 days ago. Since then, with each bowel movement and she has some bleeding. She denies seeing blood on her underwear or rectal bleeding not associated with bowel movements. She denies abdominal of perianal pain. She does not know if she has had hemorrhoids in the past. She had a colonoscopy approximately 4 years ago when she had rectal bleeding with bowel movements but was told that the colonoscopy showed no abnormality. She denies lightheadedness, weakness or shortness of breath. Past History - Past Medical History Allergies/Adverse Reactions: Allergies Allergy/AdvReac Type Severity Reaction Status Date / Time No Known Drug Allergies Allergy Verified 02/06/17 06:52 Home Medications: Ambulatory Orders Metoprolol Succinate [Toprol XL -] 100 mg PO HS 03/19/14 Multivitamin [Multivitamins] 1 each PO DAILY 03/19/14 Atorvastatin Ca [Lipitor -] 40 mg PO HS 07/09/14 Hydrochlorothiazide 50 mg PO HS 02/03/17 Losartan Potassium 50 mg PO HS 02/03/17 Ibuprofen [Motrin -] 600 mg PO QID PRN #28 tablet 02/08/17 Docusate Sodium [Colace -] 100 mg PO BID #14 capsule 07/27/18 Anemia: No Asthma: No Cancer: No Cardiac Disorders: No CVA: No COPD: No CHF: No Dementia: No Diabetes: No GI Disorders: No Disorders: No HTN: Yes Hypercholesterolemia: Yes Liver Disease: No Seizures: No Thyroid Disease: No - Surgical History Abdominal Surgery: No Appendectomy: No Cardiac Surgery: No Cholecystectomy: No Lung Surgery: No Neurologic Surgery: No Orthopedic Surgery: No - Suicide/Smoking/Psychosocial Hx Smoking History: Never smoked Have you smoked in the past 12 months: No Hx Alcohol Use: No Drug/Substance Use Hx: No Substance Use Type: None, Alcohol Hx Substance Use Treatment: No Review of Systems - Review of Systems Able to Perform ROS?: Yes Comments:: 12 point review of systems is negative except for what is noted in the history of present illness *Physical Exam - Vital Signs Last Vital Signs Temp Pulse Resp BP Pulse Ox 98.2 F 72 16 156/94 99 07/27/18 01:30 07/27/18 01:30 07/27/18 01:30 07/27/18 01:30 07/27/18 01:30 - Physical Exam Comments: GENERAL: Adult female, alert and oriented 3, in no acute distress HEAD: Normal with no signs of trauma. EYES: PERRLA, EOMI, sclera anicteric, conjunctiva clear. Conjunctiva pink ENT: Ears normal, nares patent, oropharynx clear without exudates. Moist mucous membranes. NECK: Normal range of motion, supple without lymphadenopathy, JVD, or masses. LUNGS: Breath sounds equal, clear to auscultation bilaterally. No wheezes, and no crackles. HEART:Regular rate and rhythm, normal S1 and S2 without murmur, rub or gallop. ABDOMEN:.normal bowel sounds No guarding,tenderness or rebound.No masses No distention. RECTAL exam: External skin tags; internal hemorrhoids palpated. No blood on examining finger. No other masses or abnormality evident. EXTREMITIES: Normal range of motion, no edema. No clubbing or cyanosis. No erythema, or tenderness. NEUROLOGICAL: Cranial nerves II through XII grossly intact. Normal speech. No focal neurological deficits. MUSCULOSKELETAL: Back non-tender to palpation, no CVA tenderness SKIN: Warm, Dry, normal turgor, no rashes or lesions noted. Medical Decision Making - Medical Decision Making This 47-year-old woman presents with a history of rectal bleeding associated only with bowel movements for the last 2 days. She denies lightheadedness or weakness; she has arranged for follow-up with her PMD (Dr. Wiggins). Appointment is in one week (08/02) and patient is concerned that this is too long a wait for workup. Exam as noted above. Patient clearly has hemorrhoidal disease on exam and rectal bleeding is only associated with bowel movements. Patient has no past medical history of anemia and has no symptoms suggestive of hypovolemia/critical blood loss. On questioning, the patient states that she had asked for a Monday or appointment because she leaves work early on those days (the date that was arranged, 08/02, is a ). However, she can arrange to see her doctor on other days the week. It was suggested to the patient to call Dr. Wiggins's office tomorrow and to move the appointment up if possible. Meanwhile, she should drink plenty of water and eat high fiber diet to avoid constipation. Prescription for Colace 100 mg twice a day sent to her pharmacy case she does become constipated. She should return to the emergency room if she has increased bleeding, especially if not related to bowel movements, or develops lightheadedness/weakness *DC/Admit/Observation/Transfer Diagnosis at time of Disposition: Bleeding internal hemorrhoids - Discharge Dispostion Disposition: HOME Condition at time of disposition: Stable - Prescriptions Prescriptions: Docusate Sodium [Colace -] 100 mg PO BID #14 capsule - Referrals Referrals: Dominic Wiggins MD [Primary Care Provider] - Call tomorrow - Patient Instructions Printed Discharge Instructions: DI for Rectal Bleeding Additional Instructions: Continue drinking plenty of water and following a high fiber diet Colace 100 mg twice a day if you become constipated Call Dr. Wiggins's office tomorrow to move up appointment to see her Return to ER if you have spontaneous bleeding, lightheadedness, abdominal pain - Post Discharge Activity
== END 2018-07-27 02:33 | disposition home or self-care (01) ==
LOC: FER 01:27
DX: K64.9 Unspecified hemorrhoids (principal); I10 Essential (primary) hypertension; E78.00 Pure hypercholesterolemia, unspecified
CPT/HCPCS: 99281-25

== ENCOUNTER → 2019-04-22 | Day surgery (SDC) | payer OTHER ==
--- NOTE | 2019-04-23 16:06 | PATH ---
Surgical Pathology Report Patient Name: MILAGRO ESPINOZA [facility]. Rec. #: [id number] /Age/Gender: 1970 (Age: 48) / F Account: [id number] Location: Taken: 04/22/2019 Received: 04/22/2019 Reported: 04/23/2019 Physicians: Kelli Coy M.D. Specimen(s) Received RIGHT BREAST 4:00 Clinical History Nonpalpable lesion Ultrasound findings: Probably benign 1.10 cm Final Diagnosis BREAST, RIGHT, 4:00, ULTRASOUND GUIDED CORE BIOPSY: FIBROADENOMA. Electronically Signed Patti Gandara M.D. Gross Description Received in formalin labeled "right breast 4:00," are 5 wahl-yellow, cylindrical portion of the fibroadipose tissue ranging from 0.2-1.2 cm in length and averaging 0.1 cm in diameter. The specimens are submitted in toto in one cassette. Time to formalin fixation: Less than one minute Total formalin fixation time: Approximately 8 hours. /04/22/2019 saudi/04/22/2019
== END | disposition home or self-care (01) ==
LOC: JMAMMO-SUR 08:49
PROVIDERS: ATTEND Obstetrics & Gynecology
PROC: 0HBT3ZX Excision of Right Breast, Percutaneous Approach, Diagnostic (ICD-10-PCS; principal; 2019-04-22)
DX: D24.1 Benign neoplasm of right breast (principal)
CPT/HCPCS: 19083; 87899; 88305-TC; A4648

== ENCOUNTER → 2021-08-04 | Day surgery (SDC) | payer OTHER | END | disposition home or self-care (01) | LOC: JRADUS-SUR 10:05 | PROVIDERS: ATTEND Obstetrics & Gynecology | PROC: 0H9T3ZX Drainage of Right Breast, Percutaneous Approach, Diagnostic (ICD-10-PCS; principal; 2021-08-04) | DX: D24.1 Benign neoplasm of right breast (principal) | CPT/HCPCS: 19083; 19084; 77065-TC; 87899; 88305-TC; A4648 ==